=== PATIENT | male | born 1930 | race Caucasian/White ===

== ENCOUNTER → 2018-02-02 | Outpatient (REF) | payer MEDICARE ==
[2018-02-02 20:06] LABS: TOTAL PROTEIN 7.1 GM/DL (6.4-8.2)
[2018-02-02 20:08] LABS: FERRITIN 105 NG/ML (26-388); IRON (FE) 139 UG/DL (65-175); TOTAL IRON BINDING CAPACITY 366 UG/DL (250-450)
[2018-02-02 20:10] LABS: VITAMIN B12 LEVEL 495 PG/ML
[2018-02-02 20:35] LABS: ERYTHROCYTE SEDIMENTATION RATE 26 mm/hr (0-30)
[2018-02-02 20:38] LABS: RETIC HEMOGLOBIN EQUIVALENT 38.9 pg (24-36); RETICULOCYTE # 47.5 10^9/L (17-77); RETICULOCYTE % 1.2 % (0.5-1.5)
[2018-02-02 20:40] LABS: SLIDE REVIEW Report; SOURCE PERIPHERAL SMEAR
[2018-02-02 20:43] LABS: REASON FOR REVIEW ANEMIA / RBC MORPH
[2018-02-04 11:13] LABS: ALBUMIN 4.24 GM/DL (3.29-5.55); ALBUMIN % 59.7 % (55.8-66.1); ALPHA-1-GLOBULIN % 4.4 % (2.9-4.9); ALPHA-1-GLOBULINS 0.31 GM/DL (0.17-0.41); ALPHA-2-GLOBULINS 0.87 GM/DL (0.42-0.99); ALPHA-2-GLOBULINS % 12.2 % (7.1-11.8); BETA-1-GLOBULINS 0.46 GM/DL (0.28-0.60); BETA-1-GLOBULINS % 6.5 % (4.7-7.2); BETA-2-GLOBULINS 0.37 GM/DL (0.19-0.55); BETA-2-GLOBULINS % 5.2 % (3.2-6.5); GAMMA GLOBULINS 0.85 GM/DL (0.65-1.58)
[2018-02-04 14:14] LABS: ANTINUCLEAR ANTIBODIES DIRECT Negative (Negative)
[2018-02-04 14:14] LABS: HAPTOGLOBIN 16 mg/dL (34-200)
== END ==
LOC: M LAB REF 17:33
DX: D61.818 Other pancytopenia (principal); D75.89 Other specified diseases of blood and blood-forming organs
CPT/HCPCS: 82746

== ENCOUNTER → 2019-03-22 | Outpatient (CLI) | payer MEDICARE ==
--- NOTE | 2019-03-22 11:20 | REP ---
Left lower extremity arterial Doppler ultrasound: History: Left leg claudication. Findings: Noncompressible vessels preclude ankle brachial index assessment. 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 Low velocities above the stenosis in the common femoral artery suggest inflow disease. Monophasic flow waveforms are seen throughout the left lower extremity. Significant atherosclerotic changes are seen throughout the superficial femoral artery and calcifications are seen in the calf arteries. Velocity chart left lower extremity arteries: CF A 26, 57, and 393 cm/S Profunda 186 Proximal SFA 69 Mid SFA 58 Distal SFA 32 Popliteal 53 Proximal AT A 34 Tibioperoneal trunk 44 Proximal FAMILY CENTERED SPECIALIST 30 Distal FAMILY CENTERED SPECIALIST 25 Distal AT A 52 Electronically Signed by Chetan Stephens MD 03/22/2019 11:12 A
== END ==
LOC: M RAD 09:23
PROVIDERS: ATTEND Surgery
DX: I70.212 Atherosclerosis of native arteries of extremities with intermittent claudication, left leg (principal)

== ENCOUNTER → 2019-06-03 | Outpatient (CLI) | payer MEDICARE ==
[2019-06-03 14:12] LABS: BASO % 0.3 % (0.0-1.0); EOS # 0.1 10^3/uL (0.0-0.50); HEMATOCRIT 38.3 % (42.0-52.0); HEMOGLOBIN 12.7 g/dl (13.5-17.5); LYMPH # 0.8 10^3/uL (1.5-4.5); LYMPH % 12.1 % (24.0-44.0); MEAN CORPUSCULAR HGB CONC 33.2 g/dl (32.0-36.5); MEAN CORPUSCULAR VOLUME 102.4 fl (80.0-96.0); MONO # 0.4 10^3/uL (0.0-0.8); MONO % 6.7 % (0.0-5.0); NEUTROPHILS % 79.6 % (36.0-66.0); PLATELET COUNT, AUTOMATED 171 10^3/uL (150-450); RED BLOOD COUNT 3.74 10^6/uL (4.30-6.10); WHITE BLOOD COUNT 6.3 10^3/uL (4.0-10.0)
[2019-06-03 14:25] LABS: INR 1.07; PROTHROMBIN TIME 13.7 SECONDS (11.8-14.0)
== END ==
LOC: M LAB 13:48
PROVIDERS: ATTEND Internal Medicine Cardiovascular Disease
DX: I48.0 Paroxysmal atrial fibrillation (principal)